=== PATIENT | male | born 1985 | race Caucasian/White ===

== ENCOUNTER → 2020-02-13 12:14 | Outpatient (BNVA) | payer OTHER, SELFPAY | PROVIDERS: Visit Provider Nurse Practitioner Family | DX: Z20.828 Contact with and (suspected) exposure to other viral communicable diseases (principal); J06.9 Acute upper respiratory infection, unspecified | CPT/HCPCS: 87426 ==

== ENCOUNTER 2022-11-21 19:01 | Emergency (ER) | payer OTHER, SELFPAY ==
[2022-11-21 19:09] VITALS: BP 121/78; PULSE 94; RESP 17; TEMP 36.6; O2SAT 98; BMI 23.7
--- NOTE | 2022-11-21 19:14 | ECG_ITS ---
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 Measurements Intervals [place] Rate: 86 P: 76 NE: 175 QRS: 30 QRSD: 108 T: 38 QT: 336 QTc: 403 Interpretive Statements SINUS RHYTHM WITH SINUS ARRHYTHMIA No previous ECG available for comparison Electronically Signed On 11-22-2022 8:24:28 CDT by Adarsh Quevedo M.D. [id number]
--- NOTE | 2022-11-21 19:27 | W.ED.ARRPALP ---
HPI - Arrhythmia/Palpitations General: Chief Complaint: Arrhythmia/Palpitations Stated Complaint: heart flutters Time Seen by Provider: 11/21/22 19:15 History of Present Illness: 37-year-old male patient comes in today with palpitations or pauses he is noted in his heart beat. Patient had recently had a cardiac work-up that showed no abnormal evaluation and has also seen a tester rocket engine for lung discomfort. Patient does have a history of GERD, pancreas deficiency, seasonal allergies, and IBS symptoms. Patient does not use alcohol and stop smoking last year. 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 Review of Systems General: Reports: 10 or more systems reviewed and unremarkable except in HPI and below Const: Denies: fever(s) ENMT: Denies: throat pain Card: Reports: palpitations Resp: Denies: dyspnea GI: Reports: heartburn Physical Exam Const: COMMON NORMALS: alert HENMT: COMMON NORMALS: normocephalic HEAD & SCALP: normocephalic Neck/C-Spine: COMMON NORMALS: no meningeal signs Resp: COMMON NORMALS: normal respiratory effort and clear to auscultation bilaterally AUSCULTATION: clear to auscultation bilaterally Cardio: COMMON NORMALS: regular rate and regular rhythm RATE: regular rate RHYTHM: regular rhythm Extremity: COMMON NORMALS: normal to inspection Neuro: SENSORIUM/ORIENTATION: Yes alert MENINGEAL SIGNS: Yes no meningeal signs Skin: COMMON NORMALS: turgor normal GENERAL SKIN EXAM: turgor normal Course Vital Signs: Vital signs: Vital Signs Temperature 98 F 11/21/22 19:09 Pulse Rate 86 11/21/22 19:47 Respiratory Rate 17 11/21/22 19:47 Blood Pressure 136/81 11/21/22 19:30 Pulse Oximetry 99 11/21/22 19:47 Oxygen Delivery Me thod Room Air 11/21/22 19:30 MDM - Arrhythmia/Palpitations Medical Decision Making 37-year-old male patient comes in today for complaints of irregular heart rate. Patient reports that occasionally he will miss a beat in his heart. Patient does endorse recent cardiology and pulmonology evaluation. Exam is unremarkable. Vital signs are normal. Differential diagnosis includes anxiety, sinus arrhythmia, PVCs, electrolyte imbalance, thyroid disorder, substance use disorder. Laboratory values were normal. D-dimer, troponin, and TSH were all within normal range. EKG showed a sinus rhythm with a regular rate in the 80s. Nursing reported that the cardiac monitoring noted occasional PVCs less than 6-minute. Recommended patient follow-up with primary care for further evaluation and treatment of PVCs. Patient requested Holter monitor order was placed and will be sent to central booking with recommendations for follow-up with cardiology for review. Patient and family both reported understanding. Lab Data 11/21/22 19:30 11/21/22: Laboratory Results WBC 5.38 10^3/uL (3.29-11.43) 11/21/22: RBC 5.40 10^6/uL (3.85-5.65) 11/21/22: Hgb 16.30 g/dL (11.27-16.99) 11/21/22: Hct 47.1 % (37-53) 11/21/22: MCV 87.2 fl (82-101) 11/21/22: MCH 30.2 pg (27-33) 11/21/22: MCHC 34.6 g/dL (30-55) 11/21/22: RDW 12.2 % (12.1-15.1) 11/21/22: Plt Count 185 10^3/cmm (157-399) 11/21/22 19: MPV 10.6 fL (7.4-10.4) H 11/21/22 19: Neut % (Auto) 53.7 % 11/21/22: Lymph % (Auto) 34.4 % 11/21/22 19: [place] % (Auto) 10.4 % 11/21/22 19: Eos % (Auto) 0.7 % 11/21/22: Baso % (Auto) 0.6 % 11/21/22: Neut # (Auto) 2.89 10^3/uL (1.8-7.7) 11/21/22: Lymph # (Auto) 1.9 10^3/uL (0.8-4.8) 11/21/22: [place] # (Auto) 0.6 10^3/uL (0.2-0.9) 11/21/22 19:30 Eos # (Auto) 0.0 10^3/uL (0.0-0.8) 11/21/22 19:30 Baso # (Auto) 0.0 10^3/uL (0.0-0.1) 11/21/22 19:30 Nucleated RBC % (auto) 0 % 11/21/22: Nucleated RBCs # 0.0 /100WBC 11/21/22: D-Dimer <= 0.27 ug/mLFEU (0-0.59) 11/21/22 19:30 Sodium 141 mmol/L (136-145) 11/21/22 19: Potassium 3.6 mmol/L (3.5-5.1) 11/21/22: Chloride 103 mmol/L (98-107) 11/21/22: Carbon Dioxide 29 mmol/L (22-29) 11/21/22: Anion Gap 12.6 (5-19) 11/21/22: BUN 12 mg/dL (6-20) 11/21/22 19: Creatinine 0.9 mg/dL (0.7-1.2) 11/21/22 19:30 GFR Calculation 95.5 mL/min (90-130) 11/21/22: Glucose 84 mg/dL (65-115) 11/21/22: Calculated Osmolality 291 mOsm/kg (285-295) 11/21/22: Calcium 9.2 mg/dL (8.5-10.5) 11/21/22: Total Bilirubin 0.7 mg/dL (0.15-1.2) 11/21/22 19:30 AST 15 U/L (0-40) 11/21/22:30 ALT 15 U/L (0-41) 11/21/22: Alkaline Phosphatase 70 U/L (40-130) 11/21/22: Troponin T Gen 5 ng/L 7 ng/L (0-15) 11/21/22 19:30 Total Protein 6.7 g/dL (6.6-8.7) 11/21/22: Albumin 4.7 g/dL (3.5-5.2) 11/21/22 19:30 Globulin 2.0 g/dL (1.3-4.6) 11/21/22 19:30 Lipase 17 U/L (13-60) 11/21/22 19:30 TSH 1.68 uIU/mL (0.27-4.20) 11/21/22 19:30 No radiology studies performed this visit Discharge Plan Discharge Patient Disposition: Home Clinical Impression: Palpitations, Ventricular premature beats Condition: Stable Prescriptions: No Action loratadine [Allergy Relief (loratadine)] 10 mg tablet 10 mg PO DAILY ibuprofen [Motrin IB] 200 mg tablet 200 mg PO Q6H PRN Discharge Orders: Discharge ED (Routine); Ordered 11/21/22 Ordered By: Jonel Angulo Discharge Diet: Usual diet Discharge Activity: Increase activity as tolerated Patient Instructions: Premature Ventricular Contractions (ED) Activity Restrictions/Additional Instructions: Case management or central booking will contact you regarding coming in for initiation of Holter monitor, and follow-up appointment with cardiology to review results. Return to the ER for increased shortness of breath, severe chest pain, or new concerns. 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
[2022-11-21 19:30] VITALS: BP 136/81; PULSE 89; RESP 18; O2SAT 100
[2022-11-21 19:45] LABS: Basophils % 0.6 %; Eosinophils % 0.7 %; Hematocrit 47.1 % (37-53); Lymphocytes # 1.9 10^3/uL (0.8-4.8); Lymphocytes % 34.4 %; Mean Corpuscular HGB Conc 34.6 g/dL (30-55); Mean Corpuscular Hemoglobin 30.2 pg (27-33); Mean Corpuscular Volume 87.2 fl (82-101); Mean Platelet Volume 10.6 fL (7.4-10.4); Monocytes # 0.6 10^3/uL (0.2-0.9); Monocytes % 10.4 %; Neutrophils # 2.89 10^3/uL (1.8-7.7); Neutrophils % 53.7 %; Nucleated Red Blood Cells % 0 %; Platelet Count 185 10^3/cmm (157-399); Red Cell Distribution Width 12.2 % (12.1-15.1); White Blood Count 5.38 10^3/uL (3.29-11.43)
[2022-11-21 19:47] VITALS: PULSE 86; RESP 17; O2SAT 99
[2022-11-21 20:08] LABS: D Dimer <= 0.27 ug/mLFEU (0-0.59)
[2022-11-21 20:14] LABS: Troponin T (5th) Once 7 ng/L (0-15)
[2022-11-21 20:19] LABS: Alanine Aminotransferase 15 U/L (0-41); Albumin Level 4.7 g/dL (3.5-5.2); Alkaline Phosphatase 70 U/L (40-130); Anion Gap 12.6 (5-19); Aspartate Amino Transferase 15 U/L (0-40); Blood Urea Nitrogen 12 mg/dL (6-20); Calcium 9.2 mg/dL (8.5-10.5); Carbon Dioxide 29 mmol/L (22-29); Chloride 103 mmol/L (98-107); Glomerular Filtration Rate 95.5 mL/min (90-130); Glucose 84 mg/dL (65-115); Lipase 17 U/L (13-60); Osmolality Calculated 291 mOsm/kg (285-295); Potassium 3.6 mmol/L (3.5-5.1); Sodium 141 mmol/L (136-145); Thyroid Stimulating Hormone 1.68 uIU/mL (0.27-4.20); Total Bilirubin 0.7 mg/dL (0.15-1.2); Total Protein 6.7 g/dL (6.6-8.7)
[2022-11-21 21:02] VITALS: BP 100/83; PULSE 89; RESP 20; O2SAT 99
== END 2022-11-21 21:05 | disposition home or self-care (01) ==
PROVIDERS: Emergency Provider Nurse Practitioner Family
DX: I49.3 Ventricular premature depolarization (principal)
CPT/HCPCS: 80053; 83690; 84443; 84484; 85025; 85378; 93005; 99284

== ENCOUNTER 2024-06-06 22:55 | Emergency (ER) | payer OTHER, SELFPAY ==
[2024-06-06 23:18] VITALS: BP 119/73; PULSE 77; RESP 17; TEMP 36.6; O2SAT 99; BMI 25.1
--- NOTE | 2024-06-06 23:51 | W.ED.WOUNDLC ---
HPI - Wound/Laceration General: Chief Complaint: Wound/Laceration Stated Complaint: right foot lac Time Seen by Provider: 06/06/24 23:25 Source: patient Mode of arrival: ambulatory Limitations: no limitations History of Present Illness: 38yo male presents for evaluation of a laceration to the right foot that occurred when a glass bottle fell, striking him in the left foot. States that it did cut through his sock. Patient reports he has had a bandage applied, but the bleeding persist. Patient reports his tetanus is up-to-date. He denies any other injury or concern at this time. Associated symptoms: Denies chills or fever(s) Related Data Home Medications ?Medication ?Instructions ?Recorded ?Confirmed ibuprofen 200 mg tablet (Motrin IB) 200 mg PO Q6H PRN 02/13/20 02/13/20 loratadine 10 mg tablet (Allergy 10 mg PO DAILY 02/13/20 02/13/20 Relief (loratadine)) Allergies Allergy/AdvReac Type Severity Reaction Status Date / Time No Known Allergies Allergy Verified 06/06/24 23:23 Review of Systems Const: Denies: fever(s) or chills Skin/Breast: Reports: other (Laceration right foot) [place]/Lymph: Denies: easy bruising or easy bleeding Physical Exam Const: COMMON NORMALS: no acute distress, patient oriented x3, healthy appearing and alert GENERAL APPEARANCE: cooperative OTHER: Patient is ambulatory to the exam room unassisted. He is sitting upright on the stretcher no acute distress. He is able to give history with no difficulty. He is interactive with exam appropriately. No family is at bedside at time of exam Resp: COMMON NORMALS: normal respiratory effort EFFORT & INSPECTION: Yes able to speak in complete sentences Neuro: COMMON NORMALS: patient oriented x3 SENSORIUM/ORIENTATION: Yes alert Skin: TRAUMA: laceration (Right fifth toe) linear Procedures Laceration Laceration 1: Site: lower extremity (Right foot) Side (If applicable): right Size (cm): 1 Description: linear Depth: simple, single layer Local Anesthetic: lidocaine 1% and with epi (Use topically, no injection) Amount of anesthesia used (mL): 2 Skin layer closed with: other (Tissue adhesive) Course Vital Signs: Vital signs: Vital Signs Temperature 97.9 F 06/06/24 23:18 Pulse Rate 77 06/07/24 00:00 Respiratory Rate 17 06/07/24 00:00 Blood Pressure 119/73 06/07/24 00:00 Pulse Oximetry 99 06/07/24 00:00 Oxygen Delivery Me thod Room Air 06/07/24 00:00 MDM - Wound/Laceration Medical Decision Making 38yo male presents for evaluation of a laceration to the right foot that occurred when a glass bottle fell, striking him in the left foot. States that it did cut through his sock. Patient reports he has had a bandage applied, but the bleeding persist. Patient reports his tetanus is up-to-date. He denies any other injury or concern at this time. Patient is nontoxic in appearance. Vital signs are stable. Wound was copiously irrigated with saline and cleansed with Betadine. Lidocaine with epinephrine was used topically to ensure hemostasis. Edges were well-approximated. Tissue adhesive with a Steri-Strip were utilized to close the wound. Advised to monitor for signs of infection. Recommend he follow-up with primary care as needed for wound recheck. Return precautions provided. Patient states understanding and has no further questions or concerns at this time. No radiology studies performed this visit Discharge Plan Discharge Patient Disposition: Home Clinical Impression: Laceration of toe of right foot Qualifiers: Encounter type: initial encounter Toe: lesser toe Damage to nail status: without damage Foreign body presence: without foreign body Qualified Code(s): S91.114A - Laceration without foreign body of right lesser toe(s) without damage to nail, initial encounter Condition: Stable Prescriptions: No Action loratadine [Allergy Relief (loratadine)] 10 mg tablet 10 mg PO DAILY ibuprofen [Motrin IB] 200 mg tablet 200 mg PO Q6H PRN Discharge Orders: Discharge ED (Routine); Ordered 06/07/24 Ordered By: Hernan Braun Referrals: Chata Orellana MD [Primary Care Provider] - Patient Instructions: Skin Adhesive Care (ED) Activity Restrictions/Additional Instructions: Try to avoid petroleum based products and Neosporin on the wound as it may dissolve the glue Monitor for any signs of infection Follow-up with primary care as needed for wound recheck Return to the emergency department if any further injury, rapid worsening symptoms, and as needed Print Language: Swedish Coding Level of Care Code 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
[2024-06-06] MEDS: lidocaine-epi 1% 20 mL INJ XX (23:53)
[2024-06-07] VITALS: BP 119/73; PULSE 77; RESP 17; O2SAT 99
[2024-06-07 00:36] VITALS: BP 120/82; PULSE 72; O2SAT 98
== END 2024-06-07 00:30 | disposition home or self-care (01) ==
PROVIDERS: Emergency Provider Nurse Practitioner; PCP Family Medicine
DX: S91.114A Laceration without foreign body of right lesser toe(s) without damage to nail, initial encounter (principal); W25.XXXA Contact with sharp glass, initial encounter
CPT/HCPCS: 12001; 99283; J9999